=== PATIENT | female | born 1985 ===

== ENCOUNTER 2017-01-14 20:16 | Emergency (ER) | payer SELFPAY ==
[2017-01-14 21:30] VITALS: BMI 25.8
[2017-01-14] MEDS ORDERED: Lactated Ringer's 1,000 ML IV SCH ×2 (21:45)
--- NOTE | 2017-01-15 01:20 | OBHP ---
Datetime: 01/14/2017 21:30 IP Adm Impression: Term, intrauterine IP Admit Plan: Observation/Evaluation Admit Comment, IP Provider: 31 y/o female with IUP at 40.1wks gestation, ELODIA 01/13 based on LMP , c/w 12 wk U/S with complaints of intermittent abdominal pain since 4pm with unknown frequency. Pt a lso states she has had 1 episode of scant vaginal bleeding. Denies loss of vaginal fluid, dysuria, he adache, dizziness, back pain, n/v. Reports good movment PNC: Seen at [facility] by Dr. Davila. Planned for scheduled induction on 01/20 as per patient.PNC unr emarkable. GBS negative. A negative, Antibody positive (1st trimester) and negative (3rd trimester la bs), Rhogam given at 28wks, Chlam detected on 1st trimester Cx completed ABX test of cure negative, 3 rd trimester CBC 12/29/29.4, Remainder of PNC labs unremarkable: Hep B negative, HIV negative, RPR neg ative, Rubella immune, Ghon negative, PPD negative, Tdap received 07/12 OBHx: denies PMHX: denies Meds: PNV, [id number] Fam hx: N/c Allergies: NKDA Surgical Hx: Breast Implants Social: Denies smoking, drinking, drugs Triage Vitals: BP 112/64, 81, afebrile General: NAD Cardio: RRR, normal S1, S2, no murmurs Lungs: CTABL Abdomen: Gravid, NT, Cephalic FHT: 140's Bimanual exam: Cervix closed Assessment: IUP at 40.1 weeks, no signs of active labor, Reassuring heart tracings. Maternal vital signs wnl Plan: IV hydration Observe and monitor for progression of labor Continuous monitoring Monitor maternal vitals signs q4 Discussed case with OB Attending Dr. Freddie Vogel, PGY1 OB Hospitalist Addendum: 31 yo G1 at 40+1 wks w/ co ctxns that started at 4pm PE: Pt appears comfortable VE: closed/ thick/ high at 9 pm Pt received 1 liter LR NST reactive VE: 1/100 at 1 am Pt remained comfortable. Pt given the option to stay in possible early labor or go home and retur n if ctxns became more intense Pt decided to go home, has an u/s appoint on Tue., 01/19/2017. Pt given labor precautions (ES) Pelvic Type - PN: Adequate Extremities - PN: Normal Abdomen - PN: Normal Back - PN: Normal Breast - PN: Normal Lungs - PN: Normal Heart - PN: Normal Thyroid - PN: Normal Neurologic - PN: Normal HEENT - PN: Normal General - PN: Normal FHR - Baseline A Provider: 130's Membranes, Provider: Intact Contraction Comments Provider: irregular Vital Signs Provider: Reviewed; Within Normal Limits IP Chief Complaint: Uterine contractions; Vaginal bleeding NICHD Variability Prov Fetus A: Moderate 6-25bpm NICHD Accel Fetus A IP Provider: 15X15 FHR Category Provider Fetus A: Category I NICHD Decel Fetus A IP Provider: None Dilatation, Provider: 0 Effacement, Provider: 0 Station, Provider: -3 Genitourinary Exam: Normal DTRs - PN: Normal
[2017-01-15 05:52] VITALS: BP 107/68; PULSE 78; RESP 18; TEMP 97.9; O2SAT 100
== END 2017-01-15 01:15 | disposition home or self-care (01) ==
LOC: H.EROB2 20:16
DX: O47.1 False labor at or after 37 completed weeks of gestation (principal); Z3A.40 40 weeks gestation of pregnancy; O48.0 Post-term pregnancy
CPT/HCPCS: 96360; 99283; J7120

== ENCOUNTER 2017-01-15 06:43 | Inpatient (IN) | payer MEDICAID, SELFPAY ==
[2017-01-14 21:30] VITALS: BMI 25.8
[2017-01-15] MEDS ORDERED: Lactated Ringer's 1,000 ML IV SCH (09:00)
[2017-01-15] MEDS: Lactated Ringer's 1,000 ML IV SCH ×4 (09:55→18:25)
[2017-01-15 12:02] LABS: BASO # 0.1 K/uL (0.0-0.2); BASO % 0.6 % (0.0-2.0); EOS # 0.3 K/uL (0.0-0.7); EOS % 2.8 % (0.0-4.0); HEMATOCRIT 34.7 % (34.0-47.0); LYMPH # 2.1 K/uL (1.0-4.3); LYMPH % 20.7 % (20.0-40.0); MEAN CORPUSCULAR HEMOGLOBIN 33.1 pg (27.0-31.0); MEAN CORPUSCULAR HGB CONC 33.7 g/dL (33.0-37.0); MEAN PLATELET VOLUME 9.8 fl (7.2-11.7); MONO # 1.1 K/uL (0.0-0.8); MONO % 10.6 % (0.0-10.0); NEUT # 6.6 K/uL (1.8-7.0); NEUT % 65.3 % (50.0-75.0); NRBC % 0.1 % (0.0-0.0); RED CELL DISTRIBUTION WIDTH 13.6 % (11.5-14.5)
--- NOTE | 2017-01-15 12:04 | OBHP ---
Datetime: 01/15/2017 10:55 IP Adm Impression: Term, intrauterine IP Admit Plan: Admit to unit; Initiate labor protocol Extremities - PN: Normal Abdomen - PN: Normal Back - PN: Normal Breast - PN: Not Done Lungs - PN: Normal Heart - PN: Normal Thyroid - PN: Not Done Neurologic - PN: Normal HEENT - PN: Normal General - PN: Normal FHR - Baseline A Provider: 130 Comments, ACOG Physical Exam: bimanual exam: 3cm, 100% effaced, -3 station Gestation - Est Wks by US: 40.2 IP Hx Assessment: The History has been Reviewed and is Current EGA AdmitDate IP: 40.2 Vital Signs Provider: Reviewed IP Chief Complaint: Uterine contractions NICHD Variability Prov Fetus A: Moderate 6-25bpm NICHD Accel Fetus A IP Provider: 15X15 FHR Category Provider Fetus A: Category I NICHD Decel Fetus A IP Provider: None Dilatation, Provider: 3 Effacement, Provider: 100 Station, Provider: -3 Genitourinary Exam: Normal DTRs - PN: Not Done Datetime: 01/15/2017 07:52 Admit Comment, IP Provider: 31 yo F, , with IUP at 40.2 weeks, ELODIA 01/13 based on LMP and confir med by u/s at 9.1 weeks, presents to [facility] with complaint of painful contractions every 4 minutes, whi ch started at 6 am. Reports good movement and scant vaginal bleeding. Denies loss of fluid. OBHx: none. PMHX: denies Meds: PNV Fam Hx: noncontributory Surgical Hx: Breast Implants Social hx: Denies tobacco, alcohol, drug use Allergies: NKDA care: [facility], Dr. Davila. Scheduled for IOL on 01/20 labs: GBS negative. Blood type: A negative, ab negative (Rhogam given at 28wks), Chlamydi a detected in 1st trimester, completed treatment, and test of cure negative, 3rd trimester CBC .4, Hep B negative, HIV negative, RPR negative, Rubella immune, GC negative, PPD negative, Tdap rec eived 10/22. Physical exam: BP 114/77 General: no acute distress, AAOx3 Cardio: RRR, normal S1, S2, no murmurs Lungs: clear to auscultation bilaterally, normal resp effort Abdomen: gravid, +BS Extremities: no edema Bimanual exam: 1 cm, 100% effaced, -3 station FHR 134 Assessment: IUP at 40.2 weeks, brenda on monitor, not in active labor at this time. Plan: IV hydration, 1L LR Reassess in 2-3 hrs Discussed with attending button buttonhole marker, Dr. Frazier. -[email or web address]. obh addendum: pt seen _ examined by me. agree with above assessment and plan. Pelvic Type - PN: Adequate
[2017-01-15 12:05] LABS: MEAN CELL VOLUME 98.1 fl (81.0-99.0)
--- NOTE | 2017-01-15 12:06 | OBADHP ---
Datetime: 01/15/2017 10:55 Admit Comment, IP Provider: ob addendum: 31 yo F, , with IUP at 40.2 weeks, ELODIA 01/13 based on LMP and confirmed by u/s at 9.1 weeks, p resented to [facility] with complaint of painful 8/10 contractions every 4 minutes, which started at 6 am. Reports good movement and scant vaginal bleeding. Denies loss of fluid. Reassessed in [facility] at 10:40 am, progressed from 1cm dilation to 3cm dilation. pt seen _ examined by me. agree with above assessment and plan. Reported having a headache at this time, and BP was noted to be 130/85. Review of records shows baseline blood pressures 110-118/60-80, and does not show evidence of past episodes of elevate d blood pressure. Denies dizziness, blurry vision, epigastric or RUQ pain. OBHx: none. PMHX: denies Meds: PNV Fam Hx: noncontributory Surgical Hx: Breast Implants Social hx: Denies tobacco, alcohol, drug use Allergies: NKDA care: [facility], Dr. Davila. Scheduled for IOL on 01/20 labs: GBS negative. Blood type: A negative, ab negative (Rhogam given at 28wks), Chlamydi a detected in 1st trimester, completed treatment, and test of cure negative, 3rd trimester CBC .4, Hep B negative, HIV negative, RPR negative, Rubella immune, GC negative, PPD negative, Tdap rec eived 10/22. ROS: denies chest pain, shortness of breath, nausea/vomiting, burning with urination, dizziness, R UQ pain, epigastric pain, blurry vision Physical exam: BP 130/85 General: no acute distress, AAOx3 Cardio: RRR, normal S1, S2, no murmurs Lungs: clear to auscultation bilaterally, normal resp effort Abdomen: gravid, +BS Extremities: no edema Bimanual exam: 3 cm, 100% effaced, -3 station FHR 135 Assessment: IUP at 40.2 weeks, brenda on monitor, 3 cm dilated. Plan: Admit to labor and delivery Elevated blood pressure noted, 130/85, deviation from baseline BP throughout , which was 100-118/60-80 Elevated BP and headache may be caused by labor pains, but will r/o preeclampsia Acetamenophen 650 mg for headache Discussed with attending marketing liaison, Dr. Autumn [email or web address]. Pelvic Type - PN: Adequate Extremities - PN: Normal Abdomen - PN: Normal Back - PN: Normal Breast - PN: Not Done Lungs - PN: Normal Heart - PN: Normal Thyroid - PN: Not Done Neurologic - PN: Normal HEENT - PN: Normal General - PN: Normal FHR - Baseline A Provider: 130 Contraction Comments Provider: 1-5min Comments, ACOG Physical Exam: bimanual exam: 3cm, 100% effaced, -3 station Gestation - Est Wks by US: 40.2 IP Hx Assessment: The History has been Reviewed and is Current Vital Signs Provider: Reviewed IP Chief Complaint: Uterine contractions NICHD Variability Prov Fetus A: Moderate 6-25bpm NICHD Accel Fetus A IP Provider: 15X15 FHR Category Provider Fetus A: Category I NICHD Decel Fetus A IP Provider: None Dilatation, Provider: 3 Effacement, Provider: 100 Station, Provider: -3 Genitourinary Exam: Normal DTRs - PN: Not Done EGA AdmitDate IP: 40.2 IP Adm Impression: Term, intrauterine IP Admit Plan: Admit to unit; Initiate labor protocol Datetime: 01/14/2017 21:30 Membranes, Provider: Intact
[2017-01-15] MEDS ORDERED: Fentanyl/Bupivacaine HCl 250 ML EPI ONE ×3 (12:11→23:01)
[2017-01-15 12:16] LABS: ALB/GLOB RATIO 1.1 (1.0-2.1); ALKALINE PHOSPHATASE 153 U/L (38-126); ALT/SGPT 29 U/L (9-52); AST/SGOT 18 U/L (14-36); BILIRUBIN,TOTAL 0.2 mg/dl (0.2-1.3); BLOOD UREA NITROGEN 8 mg/dl (7-17); CALCIUM 9.2 mg/dL (8.4-10.2); CARBON DIOXIDE 24 mmol/L (22-30); CHLORIDE 108 mmol/L (98-107); GFR AFRICAN-AMERICAN > 60; GLUCOSE,RANDOM 81 mg/dL (65-105); POTASSIUM 3.9 MMOL/L (3.6-5.0); SODIUM 140 mmol/l (132-148); TOTAL PROTEIN 6.3 G/DL (6.3-8.2); URIC ACID 4.2 mg/Dl (2.2-7.5)
[2017-01-15] MEDS ORDERED: DiphenhydrAMINE 50 mg/ml Inj IVP PRN ×2 (13:11→23:01)
[2017-01-15] MEDS ORDERED: Oxytocin 30 units/LR 500ML 30 U/500 ML BAG IV ONE ×2 (14:44→21:52)
[2017-01-15] MEDS ORDERED: Oxytocin 30 units/LR 500ML 30 U/500 ML BAG IV SCH ×2 (15:17→15:59)
[2017-01-15] MEDS ORDERED: Benzocaine/Menthol SPRAY TOP PRN (21:54)
[2017-01-16] MEDS: Benzocaine/Menthol SPRAY TOP PRN (02:16)
[2017-01-16] MEDS ORDERED: Docusate-Senna 50 mg-8.6 mg Tab PO STA (06:18)
[2017-01-16] MEDS: Oxycodone/Acetaminophen 5/325 mg Tab PO PRN (06:41)
[2017-01-16 07:23] LABS: HEMATOCRIT 30.7 % (34.0-47.0); MEAN CORPUSCULAR HEMOGLOBIN 32.6 pg (27.0-31.0); MEAN CORPUSCULAR HGB CONC 33.2 g/dL (33.0-37.0); RED CELL DISTRIBUTION WIDTH 13.5 % (11.5-14.5)
[2017-01-16 07:56] LABS: WHITE BLOOD COUNT 16.5 K/uL (4.8-10.8)
--- NOTE | 2017-01-16 10:00 | OBPPN ---
Datetime: 01/16/2017 06:22 PP Pain Prov: Within normal limits PP Nausea Prov: Denies PP Flatus Prov: Yes PP BM Prov: Yes PP Heart Prov: Normal PP Lungs Prov: Normal PP Abdomen/Uterus Prov: Normal PP Lochia Prov: Normal PP C/S Incision Prov: Not Applicable PP Progress Prov: Abnormal PP Impression Prov: Normal progression PP Plan Prov: Continue present management; consult PP Progress Note Prov: PPD # 1 Patient feeling well this AM, reports moderate pelvic pain. Denies dizziness/weakness/nausea or vo miting. Reports flatus, dark bowel movement and normal urine output, tolerating PO diet, no difficult y ambulating. Patient was on iron supplement, last dose taken 01/14/17. Patient attempted breast feed ing but reports no success, baby is bottle feeding. No concerns or complaints at this time. Mom repor ts she would like circumcision for the baby. PE: VSS Lungs: CTABL Cardiac: S1 S2 rrr, no murmurs/rubs/gallops Abd: bowel sound present, soft, no tenderness to palpation Ext: no edema A: 31yr old s/p , PPD #1 P: -Continue present management -encouraged ambulation -pain management -analytics consultant order in place, encouraged breast feeding -Rhogam ordered Corinne Davila M.D. -PGY2 OB Hospitalist Addendum: Pt seen and examined by me. Agree w/ above. PPD 1 s/p , doing well, breast and bottle feeding. Continue current management. (ES) IP PP Procedures: None Vital Signs Provider PP: Reviewed; Within Normal Limits
--- NOTE | 2017-01-16 10:36 | OBDS ---
DELIVERY PERSONNEL Delivery Doctor: Shay Dhillon MD Wireless Cellular Technician: Haylee Montalvo RN Anesthesiologist: Angela Resident: Carlos/Anusha MATERNAL INFORMATION Delivery Anesthesia: Local; Epidural Estimated Blood Loss (ml): 300 Placenta Cultured: No Maternal Complications: None Provider Comments: Normal spontaneous vaginal delivery of live male, 3410 gms at 21:29, score 7, 8. Nuchal cord x 1 tight, cord clamped and cut, body delivered without difficulty, terminal meconi um. Baby placed on mother, mouth suctioned. Cord blood sent to lab. Placenta delivered spontaneously, intact with 3 vessel cord, at 21:35. Fundus firm, minimal bleeding. 1st degree vaginal laceration re paired with 3-0 vicryl, local anethesia administered. EBL 300 mL. Mother tolerated procedure well, im mediate skin to skin, baby noted with mild intercostal retractions, head of ethics and compliance at bedside, baby sen t to nursery, baby improved. Residents: Corinne Davila M.D PGY2, Bella Emanuel M.D. PGY1 LABOR SUMMARY EDC: 01/13/2017 00:00 No. Babies in Womb: 1 Attempted: No Labor Anesthesia: Epidural LABOR INFORMATION Reason for Induction: Not Applicable Onset of Labor: 01/15/2017 06:00 Complete Dilatation: 01/15/2017 19:41 Oxytocin: Augmentation Group B Beta Strep: Negative Steroids Given: None Reason Steroids Not Administered: Not Applicable MEMBRANES Membranes Rupture Method: Artificial Rupture of Membranes: 01/15/2017 18:24 Length of Rupture (hrs): 3.08 Amniotic Fluid Color: Clear Amniotic Fluid Amount: Small Amniotic Fluid Odor: Normal STAGES OF LABOR Stage 1 hrs: 13 Stage 1 min: 41 Stage 2 hrs: 1 Stage 2 min: 48 Stage 3 hrs: 0 Stage 3 min: 6 Total Time in Labor hrs: 15 Total Time in Labor min: 35 VAGINAL DELIVERY Episiotomy: None Laceration Extension: First Degree Laceration Type: Vaginal Laceration Repair: Yes Initial Vag Sponge Count: 15 Final Vag Sponge Count: 15 Initial Vag Sharps Count: 0 Final Vag Sharps Count: 2 Sponge Count Correct: N/A Sharps Count Correct: Yes BABY A INFORMATION Delivery Date/Time: 01/15/2017 21:29 Method of Delivery: Vaginal Born in Route : No : N/A Forceps: N/A Vacuum Extraction: N/A Shoulder Dystocia : No SHOULDER DYSTOCIA BABY A Infant Delivery Date/Time: 01/15/2017 21:29 PRESENTATION/POSITION BABY A Presentation: Cephalic Cephalic Presentation: Vertex Vertex Position: Right Occipital Anterior Breech Presentation: N/A PLACENTA INFORMATION BABY A Placenta Delivery Time : 01/15/2017 21:35 Placenta Method of Delivery: Spontaneous Placenta Status: Delivered SCORES BABY A Heart Rate 1 min: >100 bpm Resp Effort 1 min: Slow, Irregular Reflex Irritability 1 min: Cough or Sneeze or Pulls Away Muscle Tone 1 min: Active Motion Color 1 min: Blue/Pale Resuscitation Effort 1 min: Tactile Stimulation SCORE 1 MIN: 7 Heart Rate 5 min: >100 bpm Resp Effort 5 min: Slow, Irregular Reflex Irritability 5 min: Cough or Sneeze or Pulls Away Muscle Tone 5 min: Active Motion Color 5 min: Body [place], Extremities Blue Resuscitation Effort 5 min: Tactile Stimulation; Oxygen SCORE 5 MIN: 8 INFORMATION BABY A Gestational Age at Delivery: 40.2 Gestational Status: Term Infant Outcome : Liveborn Condition : Stable Sex: Male IDENTIFICATION/MEDS BABY A ID Band Number: [id number] ID Band Location: Left Leg; Left Arm WEIGHT/LENGTH BABY A Infant Birthweight (gms): 3410 Infant Weight (lb): 7 Infant Weight (oz): 8 Length Inches: 21.06 Length cms: 53.5 CORD INFORMATION BABY A No. Cord Vessels: 3 Nuchal Cord : Around Neck x1, Tight Cord Blood Taken: Yes Infant Suction: Mouth; Nose; Pharynx
[2017-01-16 16:16] LABS: RBC URINE 3003 /hpf (0-3); URINE BACTERIA RARE (<OCC); URINE BILIRUBIN NEGATIVE (NEGATIVE); URINE BLOOD LARGE (NEGATIVE); URINE COLOR YELLOW (YELLOW); URINE GLUCOSE (UA) 50 mg/dL (Normal); URINE KETONE TRACE mg/dL (NEGATIVE); URINE LEUKOCYTE ESTERASE SMALL Leu/uL (Negative); URINE PROTEIN 30 mg/dL (NEGATIVE); URINE UROBILINOGEN 0.2-1.0 mg/dL (0.2-1.0); WBC URINE 123 /hpf (0-5)
[2017-01-16] MEDS ORDERED: Docusate-Senna 50 mg-8.6 mg Tab PO SCH (22:00)
[2017-01-17] MEDS: Oxycodone/Acetaminophen 5/325 mg Tab PO PRN (00:43)
--- NOTE | 2017-01-17 10:03 | OBPPN ---
Datetime: 01/17/2017 06:28 PP Pain Prov: Within normal limits PP Nausea Prov: Denies PP Flatus Prov: Yes PP BM Prov: Yes PP Breasts Prov: Normal PP Heart Prov: Normal PP Lungs Prov: Normal PP Abdomen/Uterus Prov: Normal PP Lochia Prov: Normal PP Vulva/Perineum Prov: Normal PP CVA Tenderness Prov: Normal PP Extremities Prov: Normal PP C/S Incision Prov: Not Applicable PP Progress Prov: Normal PP Impression Prov: Normal progression PP Plan Prov: Discharge PP Progress Note Prov: PPD #2 S: 31y/o seen and examined at bedside this morning. No acute overnight events. Pt reports mil d pelvic pain controlled with pain meds. OOB/Ambulation well without dizziness. Breast and Bottle fee ding without difficulty. Tolerating PO diet well. Lochia is similar to menses volume. Voiding freely with no blood noted. +Bowl movement, pass gas per rectum. Denies fever/chills, diarrhea, nausea/vomit ing, CP/SOB, lightheadedness, calf pain. Pt states she has dysuria and is also complaining of rectal pain from previous hemorrhoids. O: BP 121/79, HR 78, Tmax 97.9 Antibody: positive Blood Type: A negative Rubella Immune Urine Cx (clean catch)- pending Physical exam: General: A_O HEENT: White Sclera, pink conjunctiva, oral mucosa moist Breast: enjorged/non tender/no lesions CVS: RRR, nrml S1, S2, no murmurs Lungs: Clear to auscultation BL Abdomen: non distended, +BS, firm fundus @ umbilical level. Soft, appropriate TTP. No CVA tenderne ss Neuro/Psych: AAO x3, preserved affect and mood Assessment: 31 y/o F now s/p delivery on date 01/15 with 1st degree laceration. Pt afebrile for 24 h ours, tolerating pain with meds, tolerating oral intake, adequate urine output. Doing well on PPD# 2. Normal Post progression. Mild dysuria could be secondary to vaginal laceration vs UTI, UCx se nt, patient is afebrile, no CVA tenderness Plan: Plan for discharge today OOB as tolerated Ibuprofen 600mg 1 tab q6 vs Tylenol 650mg 1 tab for mild pain Percocet 5/325mg 1-2 tablets po q6 for mod/sev pain Colace 100mg PO BID for constipation and hemorrhoids Encourage and ambulation RH negative: Rhogam given prior to D/C on 01/16 Circumcision completed for baby boy F/U UCx outpatient Alia Vogel, PGY1 OBH ADDENDUM: pt seen _ examined by me. agree with above assessment and plan with the following conditions: Subjective: Patient complains of cramping associated with breast-feeding; she patient complains of internal dysuria associated with the voiding she denies external dysuria Objective: Breasts slightly engorged within normal limits Impression: UTI Hemorrhoids Plan: Increase water intake Rx Macrobid Epifoam and Tuck's for hemorrhoids Motrin for uterine cramping Reinforced benefits of breast-feeding to mother and Continue with vitamins Pelvic rest times 6wks Vital Signs Provider PP: Reviewed; Within Normal Limits
--- NOTE | 2017-01-17 10:03 | OBDCSUM ---
Datetime: 01/17/2017 06:31 Discharged to, Provider: Home Follow up at, Provider: Dr. Davila Disch Instr Activity: Normal activity; May be up to bathroom; May be up for meals; May Shower Disch Instr Diet: Regular Discharge Instructions, Provider: Routine instructions given Discharge Diagnosis, Provider: Term Delivered Discharge Time: 01/17/2017 12:00 Follow up in weeks, Provider: 4-6 weeks Disch Referrals: None Contraception discussed, Prov: Yes Disch Activity Restrictions: No sexual activity; Nothing in vagina - [employer], tampons, douche Discharge Comment, Provider: DOA: 01/15 EGA: 40.2wks Diagnosis: with 1st degree lacerations, repaired Summary of : . Uncomplicated L_D Summary DOD: 01/15 NB: Male : 7/8 Weight: 3410 Post Summary: No complications during post . Lochia< menses. Rhogam given on 01/16. CBC post : 10.2, 30.7 Blood Type: A negative Discharge Date: 01/17 Discharge Instructions: 1. Encourage 2. PNV 1 tab po qday 3. Ibuprofen 600mg 1 tab po prn q6 for mild to moderate pain 4. Colace 100mg BID x7 days 5. Ambulatory as tolerated, nothing per vagina. If excessive bleeding or fever without relieve fro m Tylenol, go to ED 6. F/u at [facility] in 4-6 weeks Alia Vogel PGY1 OB attending: Agree with above the progress note date 2 for further instructions. Contraception after Delivery: Undecided Datetime: 01/15/2017 01:12 Disch Instr Activity: May Shower Discharge Instructions, Provider: Routine instructions given
[2017-01-17] MEDS ORDERED: Hydrocortisone-Pramoxine 1%-1% Foam(10 gm) TOP SCH (10:30)
[2017-01-17] MEDS: Benzocaine/Menthol SPRAY TOP PRN (11:02)
[2017-01-17 17:05] VITALS: BP 108/64; PULSE 74; RESP 20; TEMP 98; O2SAT 99
== END 2017-01-17 12:45 | disposition home or self-care (01) | DRG 372 ==
LOC: H.EROB2 06:43 → H.EROB 07:17 → H.L&D 10:58 → H.EROB2 10:58 → H.OB/GYN 23:40
PROVIDERS: ADMIT Obstetrics & Gynecology; ATTEND Obstetrics & Gynecology
PROC: 4A1HXCZ Monitoring of Products of Conception, Cardiac Rate, External Approach (ICD-10-PCS; 2017-01-15)
PROC: 10E0XZZ Delivery of Products of Conception, External Approach (ICD-10-PCS; principal; 2017-01-16)
PROC: 0HQ9XZZ Repair Perineum Skin, External Approach (ICD-10-PCS; 2017-01-16)
DX: O77.0 Labor and delivery complicated by meconium in amniotic fluid (principal); O75.3 Other infection during labor; N39.0 Urinary tract infection, site not specified; O70.0 First degree perineal laceration during delivery; Z37.0 Single live birth; O69.1XX0 Labor and delivery complicated by cord around neck, with compression, not applicable or unspecified; O22.43 Hemorrhoids in pregnancy, third trimester; Z3A.40 40 weeks gestation of pregnancy; Z98.82 Breast implant status